=== PATIENT | female | born 1955 | race Caucasian/White ===

== ENCOUNTER 2024-09-23 13:30 | Emergency (ER) | payer BC, SELFPAY ==
[2024-09-23 13:37] VITALS: BP 183/95
[2024-09-23 14:05] VITALS: BMI 37.6
--- NOTE | 2024-09-23 14:12 | EDRN ---
Wound/skin tear on mid lower anterior R leg was 6cm x 3 cm w/ trianglular shape, irrigated w/ saline and wet saline dressing placed over wound.
[2024-09-23 14:13] VITALS: BMI 37.6
--- NOTE | 2024-09-23 14:48 | EDRN ---
Ariana GILLIAM in room w/pt and
[2024-09-23 15:22] VITALS: BP 161/86
--- NOTE | 2024-09-23 15:23 | EDRN ---
R lower leg wound dressed w/ double antibiotic ointment, telfa and kerlix.
--- NOTE | 2024-09-23 15:26 | ED.SKININJ ---
HPI-Injury
General
Chief Complaint: Skin Surface Trauma
Source: patient
Exam Limitations: none
Time Seen by Provider: 09/23/24 14:00
History of Present Illness-Injury
Initial Injury comments:
69-year-old female with history of lymphedema presents with skin tear/laceration to right leg she sustained today. She scraped her champagne against the edge of a metal chair. Tetanus vaccine was updated last week. No other complaints
Phy Exam
Physical Exam
Physical Exam:
General: Well-appearing female no acute respiratory distress
Skin: 4 cm superficial skin tear anterior right champagne edges of the wound are retracted about a centimeter. This is flap in nature. No significant bleeding or swelling
No tendon involvement
Course
Vital Signs
Initial and Last Documented VS:
Initial Vital Signs
Temp Pulse Resp BP Pulse Ox
97.9 F 85 16 183/95 96
09/23/24 13:37 09/23/24 13:37 09/23/24 13:37 09/23/24 13:37 09/23/24 13:37
Last Documented Vital Signs
Temp Pulse Resp BP Pulse Ox
97.6 F 83 16 161/86 100
09/23/24 13:37 09/23/24 15:22 09/23/24 13:37 09/23/24 15:22 09/23/24 15:22
MDM/Problems Addressed
Differential Diagnosis Includes:
Skin tear right champagne. No sign of tendon involvement. Wound care options were discussed. She has had skin tears before and she tends to heal better if sutures are applied. Explained at times given the nature of these wounds sutures can pull
through the skin they understood this. Nonetheless the wound was copiously irrigated anesthetized in a local fashion using 1% lidocaine with epinephrine. The wound was then approximated and closed with 4-0 Prolene sutures in a running fashion.
Total of 12 sutures were required to do so. Antibacterial ointment and nonstick gauze with a wrap was applied. Wound care instruction. She was referred to the wound care center for follow-up.
*Pulse Oximetry
SaO2: 100
Oxygen Mode of Delivery: Room air
*Critical Care Note
Total Time (30-74mins, 75-104mins- exclusive of procedures): Not Applicable
ED Attending Note
-
Portions of this chart may have been created with voice recognition software.� Occasional wrong word or��sound alike� substitutions may have occurred due to the inherent limitations of voice recognition software.
Discharge Plan
Departure
Patient Disposition: Home (Routine Discharge)
Date of Disposition: 09/23/24
Time of Disposition: 15:27
Patient with high blood pressure during this ER visit?: No
Discharge Problem:
Laceration
Instructions: Laceration Repair With Stitches ([place]), [facility]
Referrals:
Wound Care Center [Outside]
Jose Munson DO [Family Provider, Family Practice]
Activity Restrictions/Additional Instructions:
Change dressing daily. Have sutures removed in 2 weeks. Follow-up with wound care center
Interventions
Interventions:
*Risk Screen - Suicide Last Done: 09/23/24 14:13
*General Assessment Last Done: 09/23/24 14:13
*Neglect/Abuse Screening Last Done: 09/23/24 14:13
*ED- Fall Risk Assessment Last Done: 09/23/24 14:13
*ED COVID-19 Vaccine History Last Done: 09/23/24 14:13
ED-Skin Assessment Last Done: 09/23/24 14:13
Discharge Date and Time
Print Language: TRINIDADIAN
--- NOTE | 2024-09-23 15:38 | EDRN ---
Dressing fell down when pt ambulated to BR so redressed w/ kerlix and viviana wrap after okayed by Ariana GILLIAM
== END 2024-09-23 15:44 | disposition home or self-care (01) ==
LOC: EMR 13:30
PROVIDERS: EMERGENCY PHYSICIAN Student in an Organized Health Care Education/Training Program; FAMILY PHYSICIAN Family Medicine
DX: S81.811A Laceration without foreign body, right lower leg, initial encounter (principal); W26.8XXA Contact with other sharp object(s), not elsewhere classified, initial encounter
CPT/HCPCS: 99282; 12002